=== PATIENT | male | born 1950 | race Caucasian/White ===

== ENCOUNTER 2021-03-11 08:03 | Inpatient (IN) ==
[~2021-03-11 08:03] MED LIST: *HR* HYDROcodone/Acet 5/325 mg TABLET PO PRN; *HR* HYDROmorphone PF 0.5 MG/0.5 ML SYRINGE IVP PRN; Acetaminophen IV 1,000 MG/100 ML BAG IVPB PRN; Ondansetron 4 MG/2 ML VIAL IVP PRN; Ringers Solution, Lactated 1,000 ML IVC SCH
[2021-03-11] MEDS ORDERED: CeFAZolin Syr 2,000MG/20 ML 2,000 MG/20 ML SYRINGE IVPB ONE (08:32)
[2021-03-11] MEDS ORDERED: Ringers Solution, Lactated 1,000 ML IVC SCH ×2 (08:45→17:44)
[2021-03-11] MEDS ORDERED: *HR* FentaNYL (PF) 100 MCG/2 ML VIAL ONE (10:01)
[2021-03-11] MEDS ORDERED: *HR* Propofol 200 MG/20 ML VIAL IVP ONE (10:02)
[2021-03-11] MEDS ORDERED: Metoclopramide 10 MG/2 ML VIAL ONE (11:20)
[2021-03-11] MEDS ORDERED: *HR* Rocuronium Bromide 50 MG/5 ML VIAL ONE ×2 (11:29→11:54)
[2021-03-11] MEDS ORDERED: Ondansetron 4 MG/2 ML VIAL ONE (11:29)
[2021-03-11] MEDS ORDERED: *HR* Succinylcholine 200 MG/10 ML VIAL IVP ONE (11:29)
[2021-03-11] MEDS ORDERED: Lidocaine HCL 4 ML Topical Solution (Laryng-O-Jet Kit Sterile Pak) TP ONE (11:29)
[2021-03-11] MEDS ORDERED: Lidocaine -MPF 2% 2 ML VIAL ONE (11:29)
[2021-03-11] MEDS ORDERED: *HR* Vasopressin 20 UNIT/ML VIAL ONE (11:40)
[2021-03-11] MEDS ORDERED: Albumin Human 5% 25.0 GM/500 ML IV.SOLN ONE (11:40)
[2021-03-11] MEDS ORDERED: EPHEDrine 50 MG/ML VIAL ONE (11:54)
[2021-03-11 12:27] LABS: Hematocrit 31.9 % (37.5-50.1)
[2021-03-11] MEDS ORDERED: Heparin 1,000 UNITS/500 mL 500 ML ONE (12:32)
[2021-03-11] MEDS ORDERED: 0.9 % Sodium Chloride 500 ML ONE ×2 (12:32→12:34)
[2021-03-11] MEDS ORDERED: Lidocaine/EPI 1:100k 1% 50 ML VIAL ONE (12:33)
[2021-03-11 12:36] LABS: INR 1.9; Prothrombin Time 21.2 Seconds (9.4-12.1)
[2021-03-11 12:38] LABS: Activated Partial Thrombo Time 38.8 Seconds (26.0-36.0)
[2021-03-11] MEDS ORDERED: 0.9 % Sodium Chloride 1,000 ML ONE ×2 (12:42→13:32)
[2021-03-11] MEDS ORDERED: *HR* Midazolam HCl 2 MG/2 ML VIAL ONE (12:50)
[2021-03-11] MEDS ORDERED: Isovue-370 500 ML BOTTLE IVP ONE (13:08)
[2021-03-11] MEDS ORDERED: Isovue-300 50ML VIAL IVP ONE ×2 (13:33)
[2021-03-11 13:49] LABS: ABG Base Excess -6 mEq/L (-2 to 3); ABG Chloride 115 mEq/L (98-107); ABG Glucose 126 mg/dL (60-95); ABG HCO3 20 mEq/L (21-27); ABG Ionized Calcium 1.11 mmol/L (1.15-1.35); ABG Oxygen Saturation 100 % (95-98); ABG PCO2 45 mmHg (35-45); ABG PH 7.26 pH Units (7.32-7.45); ABG PO2 283 mmHg (85-104); ABG TCO2 22 mEq/L (20-26)
[2021-03-11] MEDS ORDERED: Calcium Gluconate 1,000 MG/10 ML VIAL ONE (13:54)
[2021-03-11] MEDS ORDERED: Phenylephrine 10 MG in 0.9 % Sodium Chloride 250 ML IVC SCH (14:30)
[2021-03-11] MEDS ORDERED: Dextrose Gel 15 GM/37.5 ML TUBE PO PRN ×4 (14:56→17:44)
[2021-03-11] MEDS ORDERED: D5% in Water 1,000 ML IVC PRN ×2 (14:56→17:44)
[2021-03-11] MEDS ORDERED: Artificial Tears SOLN 15 ML BOTTLE BOTH EYES PRN ×2 (14:56→17:44)
[2021-03-11] MEDS ORDERED: *HR* Dextrose 50 % in Water (Vial) 50 ML VIAL IVP PRN ×2 (14:56→17:44)
[2021-03-11 14:59] LABS: ABG Base Excess -6 mEq/L (-2 to 3); ABG Chloride 115 mEq/L (98-107); ABG Glucose 158 mg/dL (60-95); ABG HCO3 21 mEq/L (21-27); ABG Ionized Calcium 1.17 mmol/L (1.15-1.35); ABG Oxygen Saturation 96 % (95-98); ABG PCO2 48 mmHg (35-45); ABG PH 7.25 pH Units (7.32-7.45); ABG PO2 94 mmHg (85-104); ABG TCO2 23 mEq/L (20-26)
[2021-03-11] MEDS ORDERED: Pantoprazole 40 MG VIAL IVP SCH (15:00)
[2021-03-11] MEDS ORDERED: FentaNYL (PF) 1,000 MCG/100 ML IV.SOLN IVC SCH (15:00)
[2021-03-11] MEDS ORDERED: Artificial Tears SOLN 15 ML BOTTLE BOTH EYES SCH (16:00)
[2021-03-11] MEDS ORDERED: Piperacillin/Tazobactam 3.375 GM in 0.9 % Sodium Chloride Mini Bag 100 ML IVPB SCH (16:00)
[2021-03-11] MEDS ORDERED: Insulin LISPRO 300 UNITS/3 ML VIAL SUBQ SCH (16:00)
[2021-03-11 18:24] LABS: VBG Ionized Calcium 1.04 mmol/L (1.15-1.35)
[2021-03-11 18:35] LABS: Basophils % 0.3 %; Eosinophils % 0.1 %; Immature Granulocytes % 0.6 % (0-4); Mean Corpuscular Volume 88.9 fL (83.0-100.0)
[2021-03-11 18:37] LABS: Hematocrit 34.4 % (37.5-50.1); Hemoglobin 11.7 g/dL (12.9-16.9); Immature Platelets 6.6 % (1.1-6.1); Lymphocytes # 1.3 K/mcL (0.6-4.6); Lymphocytes % 9.9 %; Mean Corpuscular Hemoglobin 30.2 pg (28.0-33.3); Monocytes % 7.8 %; Neutrophils # 10.7 K/mcL (1.6-8.9); Platelet Count 109 K/mcL (140-400); Red Blood Count 3.87 M/mcL (4.19-5.50); Red Cell Distribution Width 14.8 % (11.5-14.5); Segmented Neutrophils % 81.3 %; White Blood Count 13.1 K/mcL (4.3-11.1)
[2021-03-11 18:38] LABS: INR 1.7; Prothrombin Time 19.6 Seconds (9.4-12.1)
[2021-03-11 18:41] LABS: Activated Partial Thrombo Time 34.3 Seconds (26.0-36.0)
[2021-03-11 18:45] LABS: Alanine Aminotransferase 16 Units/L (7-52); Albumin 2.9 g/dL (3.5-5.7); Albumin/Globulin Ratio 1.6 (1.1-2.2); Alkaline Phosphatase 66 Units/L (34-104); Aspartate Amino Transferase 28 Units/L (13-39); BUN/Creatinine Ratio 17 (6-26); Bilirubin,Direct 0.8 mg/dL (0.0-0.2); Bilirubin,Indirect 1.3 mg/dL (0.0-1.0); Bilirubin,Total 2.1 mg/dL (0.3-1.0); Blood Urea Nitrogen 11 mg/dL (8-23); Calcium 7.2 mg/dL (8.6-10.3); Carbon Dioxide 18 mEq/L (23-29); Chloride 116 mEq/L (98-107); Globulin 1.8 g/dL (2.4-3.5); Glucose 190 mg/dL (70-105); Magnesium 1.4 mg/dL (1.6-2.6); Osmolality,Calculated 300 (280-300); Phosphorous 4.2 mg/dL (2.7-4.5); Potassium 3.3 mEq/L (3.5-5.1); Sodium 143 mEq/L (136-145); Total Protein 4.7 g/dL (6.4-8.9); eGFR For African Americans > 60 (> 60); eGFR For Non-African Americans > 60 (> 60)
[2021-03-11] MEDS ORDERED: Potassium Chloride 40 MEQ, Lidocaine 1% 2 ML in 0.9 % Sodium Chloride 500 ML IVPB ONE (18:56)
[2021-03-11] MEDS: FentaNYL (PF) 1,000 MCG/100 ML IV.SOLN IVC SCH (19:52)
[2021-03-11] MEDS: Phenylephrine 10 MG in 0.9 % Sodium Chloride 250 ML IVC SCH (19:52)
[2021-03-11] MEDS: Calcium Gluconate 1gm/50mL 1 GM/50 ML BAG IVPB SCH ×3 (19:52→21:15)
[2021-03-11 20:35] LABS: ABG Base Excess -5 mEq/L (-2 to 3); ABG HCO3 20 mEq/L (21-27); ABG Oxygen Saturation 98 % (95-98); ABG PCO2 38 mmHg (35-45); ABG PH 7.33 pH Units (7.32-7.45); ABG PO2 113 mmHg (85-104); ABG TCO2 21 mEq/L (20-26); Blood Gas VT 500 cc
[2021-03-11] MEDS: Chlorhexidine Rinse 15 ML MOUTHWASH MM SCH (20:36)
[2021-03-11] MEDS: Artificial Tears SOLN 15 ML BOTTLE BOTH EYES SCH ×2 (20:36→23:25)
[2021-03-11] MEDS: Insulin LISPRO 300 UNITS/3 ML VIAL SUBQ SCH ×2 (20:37→23:25)
[2021-03-11] MEDS ORDERED: Chlorhexidine Rinse 15 ML MOUTHWASH MM SCH (21:00)
[2021-03-11] MEDS ORDERED: Sodium Bicarbonate 150 MEQ in D5% in Water 1,000 ML IVC SCH (21:00)
[2021-03-11] MEDS: Dexmedetomidine HCl 400 MCG/100 ML MLS IVC SCH (21:14)
[2021-03-11 23:59] LABS: Hematocrit 33.3 % (37.5-50.1); Hemoglobin 11.6 g/dL (12.9-16.9)
[2021-03-12 00:22] LABS: BUN/Creatinine Ratio 16 (6-26); Blood Urea Nitrogen 14 mg/dL (8-23); Calcium 7.9 mg/dL (8.6-10.3); Carbon Dioxide 18 mEq/L (23-29); Chloride 115 mEq/L (98-107); Glucose 198 mg/dL (70-105); Magnesium 2.3 mg/dL (1.6-2.6); Osmolality,Calculated 300 (280-300); Potassium 4.6 mEq/L (3.5-5.1); Sodium 142 mEq/L (136-145); eGFR For African Americans > 60 (> 60); eGFR For Non-African Americans > 60 (> 60)
[2021-03-12] MEDS: Artificial Tears SOLN 15 ML BOTTLE BOTH EYES SCH ×6 (02:55→23:19)
[2021-03-12] MEDS ORDERED: Pantoprazole 40 MG VIAL IVP SCH (03:00)
[2021-03-12] MEDS: Phenylephrine 10 MG in 0.9 % Sodium Chloride 250 ML IVC SCH (03:09)
[2021-03-12] MEDS: FentaNYL (PF) 1,000 MCG/100 ML IV.SOLN IVC SCH (03:11)
[2021-03-12] MEDS ORDERED: Phenylephrine 50 MG in 0.9 % Sodium Chloride 250 ML IVC SCH (04:15)
[2021-03-12] MEDS: Insulin LISPRO 300 UNITS/3 ML VIAL SUBQ SCH ×6 (04:16→23:21)
[2021-03-12 04:28] LABS: ABG Base Excess -4 mEq/L (-2 to 3); ABG HCO3 21 mEq/L (21-27); ABG Oxygen Saturation 96 % (95-98); ABG PCO2 36 mmHg (35-45); ABG PH 7.37 pH Units (7.32-7.45); ABG PO2 83 mmHg (85-104); ABG TCO2 22 mEq/L (20-26); Blood Gas Modality AF; Blood Gas VT 500 cc
[2021-03-12 04:36] LABS: Basophils % 0.2 %; Eosinophils % 0.1 %; Hematocrit 33.8 % (37.5-50.1); Hemoglobin 11.6 g/dL (12.9-16.9); Immature Granulocytes % 0.6 % (0-4); Lymphocytes # 1.3 K/mcL (0.6-4.6); Mean Corpuscular HGB Conc 34.3 g/dL (31.6-35.5); Mean Corpuscular Hemoglobin 31.2 pg (28.0-33.3); Mean Corpuscular Volume 90.9 fL (83.0-100.0); Mean Platelet Volume 11.9 fL (9.4-12.4); Monocytes # 1.2 K/mcL (0.0-1.3); Monocytes % 9.3 %; Neutrophils # 10.4 K/mcL (1.6-8.9); Platelet Count 105 K/mcL (140-400); Red Blood Count 3.72 M/mcL (4.19-5.50); Red Cell Distribution Width 15.3 % (11.5-14.5); Segmented Neutrophils % 79.8 %; White Blood Count 13.1 K/mcL (4.3-11.1)
[2021-03-12 04:44] LABS: INR 1.7; Prothrombin Time 19.4 Seconds (9.4-12.1)
[2021-03-12 04:47] LABS: Activated Partial Thrombo Time 36.4 Seconds (26.0-36.0)
[2021-03-12 04:55] LABS: Alanine Aminotransferase 18 Units/L (7-52); Albumin 2.9 g/dL (3.5-5.7); Albumin/Globulin Ratio 1.5 (1.1-2.2); Alkaline Phosphatase 66 Units/L (34-104); Aspartate Amino Transferase 35 Units/L (13-39); BUN/Creatinine Ratio 12 (6-26); Bilirubin,Direct 0.5 mg/dL (0.0-0.2); Bilirubin,Total 1.5 mg/dL (0.3-1.0); Blood Urea Nitrogen 16 mg/dL (8-23); Calcium 7.8 mg/dL (8.6-10.3); Carbon Dioxide 22 mEq/L (23-29); Chloride 115 mEq/L (98-107); Glucose 166 mg/dL (70-105); Magnesium 2.2 mg/dL (1.6-2.6); Osmolality,Calculated 305 (280-300); Potassium 4.5 mEq/L (3.5-5.1); Sodium 145 mEq/L (136-145); Total Protein 4.9 g/dL (6.4-8.9); eGFR For African Americans > 60 (> 60); eGFR For Non-African Americans 53 (> 60)
[2021-03-12] MEDS: Norepinephrine 4 MG/254 ML IV.SOLN IVC SCH ×2 (06:02→21:58)
[2021-03-12] MEDS ORDERED: Piperacillin/Tazobactam 3.375 GM in 0.9 % Sodium Chloride Mini Bag 100 ML IVPB SCH (08:00)
[2021-03-12] MEDS: Chlorhexidine Rinse 15 ML MOUTHWASH MM SCH ×2 (08:46→19:57)
[2021-03-12] MEDS ORDERED: Furosemide 20 MG/2 ML VIAL IVP ONE ×2 (08:57→13:37)
[2021-03-12 09:01] LABS: VBG Ionized Calcium 1.08 mmol/L (1.15-1.35)
[2021-03-12 09:18] LABS: BUN/Creatinine Ratio 17 (6-26); Blood Urea Nitrogen 21 mg/dL (8-23); Carbon Dioxide 21 mEq/L (23-29); Chloride 118 mEq/L (98-107); Glucose 154 mg/dL (70-105); Magnesium 2.1 mg/dL (1.6-2.6); Osmolality,Calculated 306 (280-300); Phosphorous 4.3 mg/dL (2.7-4.5); Sodium 145 mEq/L (136-145); eGFR For African Americans > 60 (> 60); eGFR For Non-African Americans 57 (> 60)
[2021-03-12 09:39] LABS: VBG Ionized Calcium 1.09 mmol/L (1.15-1.35)
[2021-03-12] MEDS ORDERED: *HR* FentaNYL (PF) 100 MCG/2 ML VIAL IVP PRN ×4 (11:05→18:29)
[2021-03-12] MEDS: Calcium Gluconate 1gm/50mL 1 GM/50 ML BAG IVPB SCH ×2 (11:21→12:28)
[2021-03-12] MEDS: Gabapentin 300 MG CAPSULE PO SCH ×2 (16:16→19:58)
[2021-03-12 17:01] LABS: VBG Ionized Calcium 1.15 mmol/L (1.15-1.35)
[2021-03-12 17:21] LABS: Albumin 3.1 g/dL (3.5-5.7); Albumin/Globulin Ratio 1.4 (1.1-2.2); Bilirubin,Direct 0.8 mg/dL (0.0-0.2); Bilirubin,Indirect 1.6 mg/dL (0.0-1.0); Bilirubin,Total 2.4 mg/dL (0.3-1.0); Globulin 2.2 g/dL (2.4-3.5); Magnesium 2.1 mg/dL (1.6-2.6); Phosphorous 4.5 mg/dL (2.7-4.5); Total Protein 5.3 g/dL (6.4-8.9)
[2021-03-12 17:22] LABS: BUN/Creatinine Ratio 21 (6-26); Blood Urea Nitrogen 27 mg/dL (8-23); Calcium 8.5 mg/dL (8.6-10.3); Carbon Dioxide 20 mEq/L (23-29); Chloride 115 mEq/L (98-107); Glucose 203 mg/dL (70-105); Osmolality,Calculated 309 (280-300); Potassium 4.1 mEq/L (3.5-5.1); Sodium 144 mEq/L (136-145); eGFR For African Americans > 60 (> 60); eGFR For Non-African Americans 55 (> 60)
[2021-03-12] MEDS ORDERED: cefTRIAXone 1,000 MG in Water for inj. (sterile) 10 ML IVP SCH (18:00)
[2021-03-12] MEDS: Lactulose Oral Soln 20 GM/30 ML UDC PO SCH ×2 (19:57→20:08)
[2021-03-12] MEDS: Dexmedetomidine HCl 400 MCG/100 ML MLS IVC SCH (19:57)
[2021-03-12 20:12] LABS: Basophils % 0.2 %; Eosinophils % 0.1 %; Immature Granulocytes % 0.5 % (0-4); Lymphocytes % 12.7 %; Red Cell Distribution Width 15.9 % (11.5-14.5)
[2021-03-12 20:13] LABS: Hematocrit 33.3 % (37.5-50.1); Hemoglobin 11.1 g/dL (12.9-16.9); Immature Platelets 7.2 % (1.1-6.1); Lymphocytes # 1.7 K/mcL (0.6-4.6); Mean Corpuscular HGB Conc 33.3 g/dL (31.6-35.5); Mean Corpuscular Hemoglobin 30.5 pg (28.0-33.3); Mean Corpuscular Volume 91.5 fL (83.0-100.0); Mean Platelet Volume 11.6 fL (9.4-12.4); Monocytes % 9.2 %; Neutrophils # 10.4 K/mcL (1.6-8.9); Red Blood Count 3.64 M/mcL (4.19-5.50); Segmented Neutrophils % 77.3 %; White Blood Count 13.5 K/mcL (4.3-11.1)
[2021-03-12 20:14] LABS: Monocytes # 1.2 K/mcL (0.0-1.3); Platelet Count 73 K/mcL (140-400)
[2021-03-13] MEDS: *HR* Metoprolol 5 MG/5 ML VIAL IVP PRN ×2 (00:11→06:14)
[2021-03-13] MEDS: Artificial Tears SOLN 15 ML BOTTLE BOTH EYES SCH ×2 (03:19→09:26)
[2021-03-13] MEDS: Insulin LISPRO 300 UNITS/3 ML VIAL SUBQ SCH ×2 (03:55→09:26)
[2021-03-13 04:32] LABS: Basophils # 0.1 K/mcL (0.0-0.2); Basophils % 0.3 %; Hematocrit 32.6 % (37.5-50.1); Hemoglobin 10.8 g/dL (12.9-16.9); Immature Granulocytes % 0.5 % (0-4); Immature Platelets 7.3 % (1.1-6.1); Lymphocytes # 1.7 K/mcL (0.6-4.6); Lymphocytes % 9.7 %; Mean Corpuscular HGB Conc 33.1 g/dL (31.6-35.5); Mean Corpuscular Hemoglobin 30.8 pg (28.0-33.3); Mean Corpuscular Volume 92.9 fL (83.0-100.0); Mean Platelet Volume 11.8 fL (9.4-12.4); Monocytes # 1.8 K/mcL (0.0-1.3); Monocytes % 10.1 %; Neutrophils # 14.2 K/mcL (1.6-8.9); Red Blood Count 3.51 M/mcL (4.19-5.50); Red Cell Distribution Width 15.9 % (11.5-14.5); Segmented Neutrophils % 79.4 %; White Blood Count 17.9 K/mcL (4.3-11.1)
[2021-03-13 04:34] LABS: Platelet Count 76 K/mcL (140-400)
[2021-03-13 04:38] LABS: Alanine Aminotransferase 73 Units/L (7-52); Albumin 3.1 g/dL (3.5-5.7); Albumin/Globulin Ratio 1.3 (1.1-2.2); Alkaline Phosphatase 105 Units/L (34-104); Aspartate Amino Transferase 95 Units/L (13-39); BUN/Creatinine Ratio 24 (6-26); Bilirubin,Indirect 1.9 mg/dL (0.0-1.0); Bilirubin,Total 2.9 mg/dL (0.3-1.0); Blood Urea Nitrogen 31 mg/dL (8-23); Calcium 8.3 mg/dL (8.6-10.3); Carbon Dioxide 22 mEq/L (23-29); Chloride 113 mEq/L (98-107); Globulin 2.4 g/dL (2.4-3.5); Glucose 220 mg/dL (70-105); Lactate Dehydrogenase 689 Units/L (140-271); Magnesium 2.1 mg/dL (1.6-2.6); Osmolality,Calculated 311 (280-300); Phosphorous 3.4 mg/dL (2.7-4.5); Potassium 4.2 mEq/L (3.5-5.1); Sodium 144 mEq/L (136-145); Total Protein 5.5 g/dL (6.4-8.9); eGFR For African Americans > 60 (> 60); eGFR For Non-African Americans 55 (> 60)
[2021-03-13 04:41] LABS: INR 2.7; Prothrombin Time 30.4 Seconds (9.4-12.1)
[2021-03-13 05:15] LABS: VBG Ionized Calcium 1.17 mmol/L (1.15-1.35)
[2021-03-13] MEDS ORDERED: Ringers Solution, Lactated 1,000 ML IVC SCH (07:45)
[2021-03-13] MEDS ORDERED: *HR* Phytonadione 5 MG TABLET PO ONE (07:54)
[2021-03-13] MEDS ORDERED: Pantoprazole 40 MG VIAL IVP SCH (09:00)
[2021-03-13] MEDS: Chlorhexidine Rinse 15 ML MOUTHWASH MM SCH (09:25)
[2021-03-13] MEDS: Gabapentin 300 MG CAPSULE PO SCH (09:25)
[2021-03-13] MEDS ORDERED: Lactulose Oral Soln 20 GM/30 ML UDC PO SCH (09:30)
[2021-03-13 12:41] VITALS: BP 132/83
== END 2021-03-13 11:30 | disposition other institution (70) | DRG 907 ==
LOC: SAMDAY 08:03 → ICNU 17:39
PROVIDERS: ADMIT Surgery; ATTEND Surgery